=== PATIENT | male | born 1995 | race African-American/Black ===

== ENCOUNTER 2020-01-18 12:33 | Inpatient (IN) | payer MEDICARE, OTHER ==
[~2020-01-18] VITALS: Ht 182.9 cm; Wt 118.4 kg
[2020-01-18] MEDS ORDERED: ACETAMINOPHEN 325MG TABLET PO STA (13:15)
[2020-01-18] MEDS ORDERED: CEFTRIAXONE 1 G PREMIX 50 ML IV ONE (14:15)
[2020-01-18] MEDS ORDERED: AZITHROMYCIN 500 MG in DEXT 5% WATER 250 ML IV ONE (14:15)
[2020-01-18 16:00] LABS: CHLORIDE 98 mEq/L (98-107)
[2020-01-18 16:03] LABS: BASOPHILS % 0.2 % (0.0-2.0); HEMATOCRIT. 42.1 % (42.0-52.0); HEMOGLOBIN. 14.4 g/dL (14.0-18.0); LYMPHOCYTES % 17.5 % (20.0-50.0); MEAN CORPUSCULAR HEMOGLOBIN 28.1 pg (28.0-32.0); MEAN PLATELET VOLUME 10.6 fl (7.4-10.4); MONOCYTES % 11.1 % (2.0-8.0); NEUTROPHILS % 71.2 % (40.0-76.0); PLATELET 163 x1000/uL (130-400); RED BLOOD CELL COUNT 5.14 mill/uL (4.7-6.1); RED CELL DISTRIBUTION WIDTH 13.2 % (11.6-14.6)
[2020-01-18] MEDS ORDERED: INSULIN REGULAR (HUMULIN R) 300UNITS/3ML SUBCUT ONE (16:45)
[2020-01-18] MEDS ORDERED: CEFTRIAXONE 1 G PREMIX 50 ML IV SCH (18:30)
[2020-01-18] MEDS ORDERED: CLONIDINE 0.1MG TABLET PO PRN (18:30)
[2020-01-18] MEDS ORDERED: ONDANSETRON HCL 4MG/2ML INJ IV PRN (18:30)
[2020-01-18] MEDS ORDERED: ACETAMINOPHEN 325MG TABLET PO PRN (18:30)
[2020-01-18] MEDS ORDERED: AZITHROMYCIN 500 MG in DEXT 5% WATER 250 ML IV SCH (18:30)
[2020-01-18] MEDS ORDERED: DIPHENHYDRAMINE 50MG/ML VIAL IV PRN (18:30)
[2020-01-18 18:59] LABS: PHOSPHORUS 3.7 mg/dL (2.5-4.9)
[2020-01-18] MEDS: ENOXAPARIN 30MG/0.3ML SYR SUBCUT SCH (20:56)
[2020-01-19 05:34] LABS: BASOPHILS % 0.4 % (0.0-2.0); HEMATOCRIT. 41.8 % (42.0-52.0); HEMOGLOBIN. 14.3 g/dL (14.0-18.0); LYMPHOCYTES % 22.5 % (20.0-50.0); MEAN CORPUSCULAR HEMOGLOBIN 28.2 pg (28.0-32.0); MEAN CORPUSCULAR VOLUME 82.6 fL (80.0-94.0); MONOCYTES % 12.7 % (2.0-8.0); NEUTROPHILS % 64.4 % (40.0-76.0); PLATELET 176 x1000/uL (130-400); RED BLOOD CELL COUNT 5.06 mill/uL (4.7-6.1)
[2020-01-19 05:39] LABS: CHLORIDE 100 mEq/L (98-107)
[2020-01-19 05:53] LABS: HDL CHOLESTEROL 36 mg/dL (40-59)
[2020-01-19 05:54] LABS: LDL CHOLESTEROL 61 mg/dL (5-100)
[2020-01-19] MEDS: ENOXAPARIN 30MG/0.3ML SYR SUBCUT SCH ×2 (09:29→18:00)
[2020-01-19] MEDS ORDERED: DEXTROSE 50% WATER 50ML SYRINGE IV PRN (12:15)
[2020-01-19] MEDS: BLOOD SUGAR DIAGNOSTIC STRIP TEST SCH ×2 (13:37→17:12)
[2020-01-19] MEDS: INSULIN LISPRO (HIGH DOSE) 100 UNITS/ML SUBCUT SCH ×2 (13:40→18:20)
[2020-01-19] MEDS: DEXAMETHASONE 10 MG/ML VIAL IV SCH (13:40)
[2020-01-19] MEDS: PIPERACILLIN/TAZOBACTAM 3.375 G in DEXT 5% WATER 100 ML IV SCH (15:12)
[2020-01-19] MEDS ORDERED: CEFTRIAXONE 1 G PREMIX 50 ML IV SCH (15:30)
[2020-01-19] MEDS: AZITHROMYCIN 500 MG in DEXT 5% WATER 250 ML IV SCH (16:34)
[2020-01-19] MEDS: GUAIFENESIN 600MG ER TABLET PO SCH (21:00)
[2020-01-20] MEDS: INSULIN LISPRO (HIGH DOSE) 100 UNITS/ML SUBCUT SCH ×4 (04:04→19:15)
[2020-01-20] MEDS: PIPERACILLIN/TAZOBACTAM 3.375 G in DEXT 5% WATER 100 ML IV SCH ×3 (04:07→19:15)
[2020-01-20] MEDS: ENOXAPARIN 30MG/0.3ML SYR SUBCUT SCH (06:43)
[2020-01-20] MEDS: BLOOD SUGAR DIAGNOSTIC STRIP TEST SCH ×5 (08:51→21:00)
[2020-01-20] MEDS: DEXAMETHASONE 10 MG/ML VIAL IV SCH (10:28)
[2020-01-20] MEDS: GUAIFENESIN 600MG ER TABLET PO SCH ×2 (10:28→21:00)
[2020-01-20] MEDS: AZITHROMYCIN 500 MG in DEXT 5% WATER 250 ML IV SCH (20:08)
[2020-01-20] MEDS: INSULIN GLARGINE UD 100 UNITS/ML SYR SUBCUT SCH (20:50)
[2020-01-20 21:23] LABS: CLARITY URINE CLEAR (CLEAR); COLOR URINE YELLOW (YELLOW); KETONES URINE 1+ (NEGATIVE); LEUKOCYTE ESTERASE URINE NEGATIVE (NEGATIVE); NITRITE URINE NEGATIVE (NEGATIVE); OCCULT BLOOD URINE NEGATIVE (NEGATIVE); PH URINE 6.5 (4.5-8.0); PROTEIN URINE NEGATIVE (NEGATIVE); SPECIFIC GRAVITY URINE 1.037 (1.005-1.030)
[2020-01-21] VITALS (7 sets, daily range): BP systolic 107–128; BP diastolic 48–82
[2020-01-21] MEDS: ENOXAPARIN 30MG/0.3ML SYR SUBCUT SCH ×3 (05:11→18:22)
[2020-01-21] MEDS: PIPERACILLIN/TAZOBACTAM 3.375 G in DEXT 5% WATER 100 ML IV SCH ×2 (05:12→13:48)
[2020-01-21 05:40] LABS: CHLORIDE 103 mEq/L (98-107)
[2020-01-21 06:01] LABS: BASOPHILS % 0.4 % (0.0-2.0); HEMATOCRIT. 42.5 % (42.0-52.0); HEMOGLOBIN. 14.5 g/dL (14.0-18.0); LYMPHOCYTES % 20.4 % (20.0-50.0); MEAN CORPUSCULAR HEMOGLOBIN 28.3 pg (28.0-32.0); MONOCYTES % 11.9 % (2.0-8.0); NEUTROPHILS % 67.3 % (40.0-76.0); PLATELET 315 x1000/uL (130-400); RED BLOOD CELL COUNT 5.12 mill/uL (4.7-6.1); RED CELL DISTRIBUTION WIDTH 12.9 % (11.6-14.6)
[2020-01-21] MEDS: INSULIN LISPRO (HIGH DOSE) 100 UNITS/ML SUBCUT SCH ×5 (06:11→22:11)
[2020-01-21] MEDS: BLOOD SUGAR DIAGNOSTIC STRIP TEST SCH ×4 (07:58→21:15)
[2020-01-21] MEDS: GUAIFENESIN 600MG ER TABLET PO SCH ×2 (08:56→20:52)
[2020-01-21] MEDS: DEXAMETHASONE 10 MG/ML VIAL IV SCH (08:56)
[2020-01-21] MEDS: INSULIN GLARGINE UD 100 UNITS/ML SYR SUBCUT SCH (10:32)
[2020-01-21] MEDS ORDERED: INSULIN GLARGINE UD 100 UNITS/ML SYR SUBCUT NR (17:30)
[2020-01-21] MEDS: AZITHROMYCIN 500 MG in DEXT 5% WATER 250 ML IV SCH (17:36)
[2020-01-21] MEDS: CEFTRIAXONE 1 G PREMIX 50 ML IV SCH (17:36)
[2020-01-21] MEDS ORDERED: INSULIN LISPRO 100 UNITS/ML SUBCUT SCH (17:40)
[2020-01-21] MEDS ORDERED: INSULIN GLARGINE UD 100 UNITS/ML SYR SUBCUT SCH (22:00)
[2020-01-22] VITALS: BP 112/69
[2020-01-22 04:00] VITALS: BP 107/60
[2020-01-22] MEDS: ENOXAPARIN 30MG/0.3ML SYR SUBCUT SCH ×2 (06:06→18:46)
[2020-01-22] MEDS: BLOOD SUGAR DIAGNOSTIC STRIP TEST SCH ×4 (07:21→21:44)
[2020-01-22 08:00] VITALS: BP 122/66
[2020-01-22] MEDS: GUAIFENESIN 600MG ER TABLET PO SCH ×2 (08:38→21:44)
[2020-01-22] MEDS: DEXAMETHASONE 10 MG/ML VIAL IV SCH (08:38)
[2020-01-22] MEDS: INSULIN LISPRO 100 UNITS/ML SUBCUT SCH ×3 (08:39→18:42)
[2020-01-22] MEDS: INSULIN LISPRO (HIGH DOSE) 100 UNITS/ML SUBCUT SCH ×4 (08:40→22:20)
[2020-01-22] MEDS: INSULIN GLARGINE UD 100 UNITS/ML SYR SUBCUT SCH ×2 (10:45→22:19)
[2020-01-22 12:00] VITALS: BP 112/71
[2020-01-22 16:00] VITALS: BP 113/62
[2020-01-22] MEDS: CEFTRIAXONE 1 G PREMIX 50 ML IV SCH (18:40)
[2020-01-22] MEDS: AZITHROMYCIN 500 MG in DEXT 5% WATER 250 ML IV SCH (18:41)
[2020-01-22 20:00] VITALS: BP 123/78
[2020-01-23] VITALS: BP 103/69
[2020-01-23 04:00] VITALS: BP 123/69
[2020-01-23] MEDS: BLOOD SUGAR DIAGNOSTIC STRIP TEST SCH ×4 (05:58→21:29)
[2020-01-23] MEDS: ENOXAPARIN 30MG/0.3ML SYR SUBCUT SCH ×2 (06:01→18:33)
[2020-01-23 06:49] LABS: BASOPHILS % 0.7 % (0.0-2.0); EOSINOPHILS % 0.4 % (0.0-5.0); HEMATOCRIT. 43.9 % (42.0-52.0); LYMPHOCYTES % 43.2 % (20.0-50.0); MEAN CORPUSCULAR HEMOGLOBIN 28.2 pg (28.0-32.0); MEAN CORPUSCULAR VOLUME 82.5 fL (80.0-94.0); MONOCYTES % 11.4 % (2.0-8.0); NEUTROPHILS % 44.3 % (40.0-76.0); PLATELET 379 x1000/uL (130-400); RED BLOOD CELL COUNT 5.32 mill/uL (4.7-6.1); RED CELL DISTRIBUTION WIDTH 13.4 % (11.6-14.6)
[2020-01-23 07:01] LABS: CHLORIDE 107 mEq/L (98-107)
[2020-01-23 08:00] VITALS: BP 113/69
[2020-01-23] MEDS: DEXAMETHASONE 10 MG/ML VIAL IV SCH (09:11)
[2020-01-23] MEDS: GUAIFENESIN 600MG ER TABLET PO SCH ×2 (09:11→22:30)
[2020-01-23] MEDS: INSULIN LISPRO 100 UNITS/ML SUBCUT SCH ×3 (09:14→17:48)
[2020-01-23] MEDS: INSULIN LISPRO (HIGH DOSE) 100 UNITS/ML SUBCUT SCH ×4 (09:14→22:30)
[2020-01-23] MEDS: INSULIN GLARGINE UD 100 UNITS/ML SYR SUBCUT SCH ×2 (11:39→22:34)
[2020-01-23 12:00] VITALS: BP 100/64
[2020-01-23 16:00] VITALS: BP 107/70
[2020-01-23] MEDS: CEFTRIAXONE 1 G PREMIX 50 ML IV SCH (16:49)
[2020-01-23] MEDS: AZITHROMYCIN 500 MG in DEXT 5% WATER 250 ML IV SCH (17:47)
[2020-01-23] MEDS ORDERED: INSULIN GLARGINE UD 100 UNITS/ML SYR SUBCUT NR (18:30)
[2020-01-23 20:00] VITALS: BP 118/63
[2020-01-24] VITALS: BP 113/57
[2020-01-24 04:00] VITALS: BP 119/85
[2020-01-24] MEDS: ENOXAPARIN 30MG/0.3ML SYR SUBCUT SCH ×2 (05:41→17:15)
[2020-01-24] MEDS: INSULIN LISPRO (HIGH DOSE) 100 UNITS/ML SUBCUT SCH ×4 (06:19→23:50)
[2020-01-24] MEDS: BLOOD SUGAR DIAGNOSTIC STRIP TEST SCH ×4 (06:19→21:38)
[2020-01-24 08:00] VITALS: BP 105/52
[2020-01-24] MEDS: GUAIFENESIN 600MG ER TABLET PO SCH ×2 (08:01→20:03)
[2020-01-24] MEDS: INSULIN LISPRO 100 UNITS/ML SUBCUT SCH ×3 (08:02→17:14)
[2020-01-24] MEDS: DEXAMETHASONE 10 MG/ML VIAL IV SCH (08:02)
[2020-01-24] MEDS: INSULIN GLARGINE UD 100 UNITS/ML SYR SUBCUT SCH ×2 (09:42→23:49)
[2020-01-24 12:00] VITALS: BP 107/72
[2020-01-24] MEDS: AZITHROMYCIN 500 MG in DEXT 5% WATER 250 ML IV SCH (15:20)
[2020-01-24 16:00] VITALS: BP 113/71
[2020-01-24] MEDS: CEFTRIAXONE 1 G PREMIX 50 ML IV SCH (16:00)
[2020-01-24 20:00] VITALS: BP 113/61
[2020-01-25] VITALS: BP 106/61
[2020-01-25 04:00] VITALS: BP 118/64
[2020-01-25] MEDS: BLOOD SUGAR DIAGNOSTIC STRIP TEST SCH ×4 (05:44→20:38)
[2020-01-25] MEDS: ENOXAPARIN 30MG/0.3ML SYR SUBCUT SCH ×2 (06:43→18:09)
[2020-01-25] MEDS: INSULIN LISPRO (HIGH DOSE) 100 UNITS/ML SUBCUT SCH ×4 (07:20→21:28)
[2020-01-25 08:00] VITALS: BP 96/52
[2020-01-25] MEDS: INSULIN LISPRO 100 UNITS/ML SUBCUT SCH ×3 (08:35→18:10)
[2020-01-25] MEDS: DEXAMETHASONE 10 MG/ML VIAL IV SCH (08:38)
[2020-01-25] MEDS: GUAIFENESIN 600MG ER TABLET PO SCH ×2 (08:38→21:26)
[2020-01-25] MEDS: INSULIN GLARGINE UD 100 UNITS/ML SYR SUBCUT SCH ×2 (09:57→22:14)
[2020-01-25 12:00] VITALS: BP 99/52
[2020-01-25] MEDS ORDERED: LORAZEPAM 0.5MG TABLET PO NR (15:30)
[2020-01-25] MEDS ORDERED: LORAZEPAM 1MG TABLET PO NR (15:43)
[2020-01-25 16:00] VITALS: BP 114/76
[2020-01-25] MEDS ORDERED: LORAZEPAM 2MG/ML CPJ IV NR (17:45)
[2020-01-25] MEDS: CEFTRIAXONE 1 G PREMIX 50 ML IV SCH (18:08)
[2020-01-25 20:52] VITALS: BP 109/73
[2020-01-26 00:23] VITALS: BP 106/72
[2020-01-26 04:00] VITALS: BP 104/65
[2020-01-26] MEDS: ENOXAPARIN 30MG/0.3ML SYR SUBCUT SCH ×2 (05:45→17:26)
[2020-01-26] MEDS: BLOOD SUGAR DIAGNOSTIC STRIP TEST SCH ×4 (06:11→21:14)
[2020-01-26] MEDS: INSULIN LISPRO (HIGH DOSE) 100 UNITS/ML SUBCUT SCH ×4 (07:31→21:14)
[2020-01-26 08:00] VITALS: BP 108/69
[2020-01-26] MEDS: DEXAMETHASONE 10 MG/ML VIAL IV SCH (08:38)
[2020-01-26] MEDS: GUAIFENESIN 600MG ER TABLET PO SCH ×2 (08:38→21:13)
[2020-01-26] MEDS: INSULIN LISPRO 100 UNITS/ML SUBCUT SCH ×3 (08:39→17:26)
[2020-01-26] MEDS: INSULIN GLARGINE UD 100 UNITS/ML SYR SUBCUT SCH ×2 (11:24→21:17)
[2020-01-26 12:00] VITALS: BP 124/67
[2020-01-26] MEDS ORDERED: LORAZEPAM 2MG/ML CPJ IV NR (12:30)
[2020-01-26 16:00] VITALS: BP 126/81
[2020-01-26 20:00] VITALS: BP 116/74
[2020-01-27] VITALS: BP 102/50
[2020-01-27 04:00] VITALS: BP 150/81
[2020-01-27] MEDS: ENOXAPARIN 30MG/0.3ML SYR SUBCUT SCH ×2 (05:12→18:27)
[2020-01-27] MEDS: BLOOD SUGAR DIAGNOSTIC STRIP TEST SCH ×4 (06:41→21:11)
[2020-01-27] MEDS: INSULIN LISPRO (HIGH DOSE) 100 UNITS/ML SUBCUT SCH ×4 (07:40→21:28)
[2020-01-27 08:00] VITALS: BP 101/60
[2020-01-27] MEDS: DEXAMETHASONE 4MG/ML 1ML VIAL IV SCH (10:15)
[2020-01-27] MEDS: GUAIFENESIN 600MG ER TABLET PO SCH ×2 (10:15→21:11)
[2020-01-27] MEDS: INSULIN LISPRO 100 UNITS/ML SUBCUT SCH ×3 (10:16→18:30)
[2020-01-27] MEDS: INSULIN GLARGINE UD 100 UNITS/ML SYR SUBCUT SCH ×2 (10:17→21:28)
[2020-01-27 12:00] VITALS: BP 107/75
[2020-01-27 16:00] VITALS: BP 107/71
[2020-01-27 20:00] VITALS: BP 115/73
[2020-01-28] VITALS: BP 108/68
[2020-01-28 04:00] VITALS: BP 93/60
[2020-01-28] MEDS: ENOXAPARIN 30MG/0.3ML SYR SUBCUT SCH ×2 (05:19→17:49)
[2020-01-28] MEDS: INSULIN LISPRO (HIGH DOSE) 100 UNITS/ML SUBCUT SCH ×4 (07:29→21:29)
[2020-01-28] MEDS: BLOOD SUGAR DIAGNOSTIC STRIP TEST SCH ×4 (07:29→21:18)
[2020-01-28] MEDS: DEXAMETHASONE 4MG/ML 1ML VIAL IV SCH (07:50)
[2020-01-28] MEDS: GUAIFENESIN 600MG ER TABLET PO SCH ×2 (07:50→21:28)
[2020-01-28] MEDS: INSULIN LISPRO 100 UNITS/ML SUBCUT SCH ×3 (07:57→17:50)
[2020-01-28 08:00] VITALS: BP 107/69
[2020-01-28] MEDS: INSULIN GLARGINE UD 100 UNITS/ML SYR SUBCUT SCH ×2 (10:37→21:29)
[2020-01-28 12:00] VITALS: BP 106/59
[2020-01-28 16:00] VITALS: BP 119/80
[2020-01-28 20:00] VITALS: BP 105/73
[2020-01-29] VITALS (7 sets, daily range): BP systolic 93–129; BP diastolic 42–69
[2020-01-29] MEDS: ENOXAPARIN 30MG/0.3ML SYR SUBCUT SCH ×2 (05:52→18:19)
[2020-01-29] MEDS: BLOOD SUGAR DIAGNOSTIC STRIP TEST SCH ×4 (07:29→21:00)
[2020-01-29] MEDS: INSULIN LISPRO 100 UNITS/ML SUBCUT SCH ×3 (07:40→18:17)
[2020-01-29] MEDS: INSULIN LISPRO (HIGH DOSE) 100 UNITS/ML SUBCUT SCH ×4 (07:48→21:00)
[2020-01-29] MEDS: GUAIFENESIN 600MG ER TABLET PO SCH ×2 (08:30→22:02)
[2020-01-29] MEDS: INSULIN GLARGINE UD 100 UNITS/ML SYR SUBCUT SCH ×2 (10:27→22:18)
[2020-01-29] MEDS ORDERED: METF-416 MT (15:09)
[2020-01-29] MEDS ORDERED: QUET400T11 MT (15:09)
[2020-01-29] MEDS ORDERED: ATOR10TA69 MT (15:11)
[2020-01-29] MEDS ORDERED: RISP3TAB13 PO (15:11)
[2020-01-29] MEDS ORDERED: GLIP10TA10 MT (15:11)
[2020-01-29] MEDS ORDERED: DIVA-75 MT (15:14)
[2020-01-29] MEDS ORDERED: LANTUSUD SUBCUT (15:22)
[2020-01-29] MEDS ORDERED: INSLIS SUBCUT (15:22)
[2020-01-29] MEDS ORDERED: LANC-335 MC (17:14)
[2020-01-30 00:29] VITALS: BP 122/71
[2020-01-30 04:00] VITALS: BP 100/51
[2020-01-30] MEDS: ENOXAPARIN 30MG/0.3ML SYR SUBCUT SCH (05:13)
[2020-01-30] MEDS: INSULIN LISPRO 100 UNITS/ML SUBCUT SCH ×2 (07:40→13:47)
[2020-01-30] MEDS: INSULIN LISPRO (HIGH DOSE) 100 UNITS/ML SUBCUT SCH ×2 (07:43→13:48)
[2020-01-30] MEDS: BLOOD SUGAR DIAGNOSTIC STRIP TEST SCH ×2 (07:43→13:36)
[2020-01-30 08:00] VITALS: BP 104/65
[2020-01-30] MEDS: GUAIFENESIN 600MG ER TABLET PO SCH (09:38)
[2020-01-30] MEDS: INSULIN GLARGINE UD 100 UNITS/ML SYR SUBCUT SCH (09:39)
[2020-01-30 12:00] VITALS: BP 98/45
[2020-01-30 16:00] VITALS: BP 106/72
[2020-01-30 18:11] VITALS: BP 106/72
== END 2020-01-30 19:50 | disposition home or self-care (01) | DRG 871 ==
LOC: ER 12:33 → MICUSO 01-19 21:51 → 7WST 01-20 23:00
PROVIDERS: ADMIT Internal Medicine; ATTEND Internal Medicine
DX: A41.89 Other specified sepsis (principal); U07.1 COVID-19; J96.01 Acute respiratory failure with hypoxia; J12.89 Other viral pneumonia; D68.59 Other primary thrombophilia; F84.0 Autistic disorder; B97.89 Other viral agents as the cause of diseases classified elsewhere; R62.50 Unspecified lack of expected normal physiological development in childhood; E11.65 Type 2 diabetes mellitus with hyperglycemia; Z79.4 Long term (current) use of insulin
CPT/HCPCS: 36415; 71045; 80048; 80053; 80061; 81003; 82728; 82962; 83036; 83615; 83735; 84100; 84443; 85025; 85379; 86141; 87635; 93005; 99291; J0456; J0696; J1100; J1650; J1815; J2060; J2543; J7060; U0003-CS